=== PATIENT | male | born 1955 | race Caucasian/White ===

== ENCOUNTER 2017-06-03 21:42 | Emergency (ER) | payer OTHER, SELFPAY ==
[2017-06-03 21:43] VITALS: BP 202/101
[2017-06-03 21:44] VITALS: BP 211/109; PULSE 95; RESP 17; TEMP 36.2; O2SAT 95; BMI 51.2
--- NOTE | 2017-06-03 21:57 | CT_ITS ---
STUDY: CT ABDOMEN AND PELVIS WITHOUT CONTRAST REASON FOR EXAM: Male, 61 years old. Left flank pain. History of kidney stones and prior basket extraction and lithotripsies. RADIATION DOSAGE (If Supplied By Facility): CTDIvol = ( 34.45 ) mGy, DLP = ( 1781.77 ) mGycm TECHNIQUE: Transaxial images were obtained from the dome of the diaphragm to the symphysis pubis without oral contrast, and without intravenous contrast. Sagittal and coronal images were reconstructed. Individualized dose optimization techniques were used for this CT. COMPARISON: None. FINDINGS: The visualized lung bases are unremarkable. The visualized portions of the heart are within normal limits. Normal liver. There are surgical clips in the gallbladder fossa consistent with a prior cholecystectomy. Normal spleen. Normal pancreas. Normal bilateral adrenal glands. Normal size of the right kidney. Areas of cortical lobulation or focal cortical scarring. Hypoattenuating focus of the lower pole compatible with simple cyst. 2 mm lower midpole nonobstructing calcification. Redundant but not distended right renal pelvis. Negative for ureteral dilatation or ureteral stones. Normal size of the left kidney. Moderate hydronephrosis of the left kidney and a dilated ureter secondary to a 4 mm stone of the distal left ureter within 1 cm of the ureterovesicular junction. 5 mm nonobstructing stone of the upper pole and a 2 mm nonobstructing stone of the lower pole. 5 cm exophytic cyst of the upper pole. Food filled stomach. Normal small intestine. Normal colon. The appendix is visualized and appears normal. Normal abdominal aorta. Normal inferior vena cava. Normal retroperitoneum. Normal urinary bladder. Bilateral small fatty inguinal hernias. There are diffuse degenerative changes of the visualized lumbar spine. CT/Abdomen/Pelvis without Cont IMPRESSION: Moderate hydronephrosis of the left kidney and a dilated ureter secondary to a 4 mm stone of the distal left ureter 1 cm above the left ureterovesicular junction. 5 mm nonobstructing stone of the upper pole. 2 mm nonobstructing stone of the lower pole of the left kidney. 5 cm exophytic cyst of the left kidney. 2 mm nonobstructing calcification in the lower mid pole of the right kidney without hydronephrosis or ureteral stones. Probable simple cyst of the right kidney. No additional acute abdominal or pelvic findings. Status post cholecystectomy. Small bilateral fatty inguinal hernias. Electronically Signed: Audra Martinez MD at 23:14 EDT , Service support ,
[2017-06-03 22:08] LABS: Bacteria 0 SEEN /hpf (None Seen); Mucous, Urine 0 SEEN /hpf (<or=2+); White Blood Cells 0 SEEN /hpf (0-5)
[2017-06-03] MEDS: Ketorolac 30 MG/ML Syringe IV (22:09)
[2017-06-03] MEDS: Ondansetron 4 MG/2 ML Vial IV (22:09)
[2017-06-03 22:10] LABS: Color, Urine Yellow (Yellow); Glucose, Dipstick 1000 mg/dl (Normal); Ketone-Dipstick Negative (Negative); Leukocyte Esterase-Dipstick Negative /ul (Negative); Nitrite-Dipstick Negative (Negative); Occult Blood-Urine 250 /ul (Negative); Protein-Dipstick 100 mg/dl (Negative); Specific Gravity, Urine 1.015 (1.002-1.030); Urine Bilirubin Dipstick Negative (Negative); Urine Clarity Sl. Cloudy (Clear); Urine Urobilinogen Normal (Normal); Urine pH 6.5 (5.0 - 8.0)
--- NOTE | 2017-06-03 22:20 | ED.DCSUM_ITS ---
- ER Visit Summary Date of Service: 06/03/17 Chief Complaint: Left flank pain History of Present Illness: The patient is a 61 M presenting with left flank pain. States this started around 1 PM today. He has a history of multiple kidney stones. He states this feels similar to his previous kidney stones. He has nausea and vomiting. He denies blood in his urine. Denies fever chills. Physical Examination: Vitals are stable. Patient is afebrile. Alert no acute distress. HEENT exam is unremarkable. Neck is supple. Lungs are clear and equal bilaterally. Heart is regular rate and rhythm. Abdomen is soft nontender nondistended. Back: left CVA tenderness Extremities are unremarkable. Skin is warm and dry. No focal neurologic deficit. Remainder of exam is unremarkable. Emergency Department Course and Treatment: Patient is given morphine, Zofran, Toradol. Urinalysis shows 10-25 red blood cells, [address] abdomen pelvis shows moderate hydronephrosis of the left kidney and a dilated ureter secondary to a 4 mm stone of the distal left ureter 1 cm above the left ureterovesicular junction. Patient was given additional dose of morphine while in the emergency department. His pain is now well controlled. He is given a prescription for Zofran and Thorofare for home. He is advised to follow-up with Dr. Henao. Advised return to ED if worsening complaints. Disposition: Discharge home Impression: Urolithiasis This note was generated with [employer] dictation software. It may contain incorrect words, spelling, and punctuation that were not noted in review of the chart prior to signing ED Disposition - Plan for ED Patient: Chief Complaint: Flank Pain Referrals: [facility] [place] ,Out of [Primary Care Provider] -
[2017-06-03 22:27] LABS: Red Blood Cells-Urine 10-25 SEEN /hpf (0-5); Squamous Epithelial Cells - UA 0-5 SEEN /hpf (0-5)
[2017-06-03] MEDS: morphine 8 MG/ML Syringe IV (22:59)
--- NOTE | 2017-06-03 23:27 | ED.DEP ---
ED Disposition - Plan for ED Patient: Chief Complaint: Flank Pain Instructions: ED Stone Renal W Col[facility] Prescriptions: Hydrocodone Bitart/Apap 5-325 [[place] 5/325] 1 - 2 tablet PO Q4H PRN PRN 2 Days #12 tablet PRN Reason: Pain Ondansetron [Zofran Odt] 4 mg PO Q8H PRN PRN #10 tablet PRN Reason: Nausea Referrals: [facility],Out of [Primary Care Provider] - Michele Henao MD [STAFF PHYSICIAN] -
[2017-06-03 23:52] VITALS: BP 172/68
== END 2017-06-03 23:53 | disposition home or self-care (01) ==
PROVIDERS: Emergency Provider Emergency Medicine
DX: N13.2 Hydronephrosis with renal and ureteral calculous obstruction (principal); Z87.442 Personal history of urinary calculi; Z90.49 Acquired absence of other specified parts of digestive tract
CPT/HCPCS: 74176; 81001; 96374; 96375; 99283; A4216; J2405